=== PATIENT | male | born 1980 | race Caucasian/White ===

== ENCOUNTER 2022-05-06 21:09 | Emergency (ER) | payer OTHER ==
[~2022-05-06] VITALS: Ht 185.4 cm; Wt 172.4 kg
[2022-05-06 21:20] VITALS: BP 112/80
--- NOTE | 2022-05-06 21:23 | NUR ---
TO LOBBY A/W BED AMBULATORY
[2022-05-06 22:28] LABS: BASOPHILS # (AUTO) 0.1 K/uL (0.00-0.22); BASOPHILS % (AUTO) 0.6 % (0.0-2.0); EOSINOPHILS # (AUTO) 0.2 K/uL (0-0.4); EOSINOPHILS % (AUTO) 1.9 % (0.0-4.0); HEMATOCRIT 46.3 % (36-52); HEMOGLOBIN 15.4 g/dL (12.0-18.0); MEAN CORPUSCULAR HEMOGLOBIN 29 pg (27-31); MEAN CORPUSCULAR HGB CONC 33 g/dL (33-37); MEAN CORPUSCULAR VOLUME 87.8 fL (80-94); MONOCYTES # (AUTO) 0.9 K/uL (0.8-1.0); NEUTROPHILS # (AUTO) 8.8 K/uL (1.8-7.7); NEUTROPHILS % (AUTO) 67.5 % (42.2-75.2); PLATELET COUNT (AUTO) 228 K/uL (140-450); RED BLOOD CELL COUNT(AUTO) 5.28 MIL/uL (4.20-6.10); RED CELL DISTRIBUTION WIDTH 14.6 % (11.6-13.7)
[2022-05-06 22:36] LABS: ANION GAP 9.3 (8-16); CARBON DIOXIDE 27.2 mmol/L (21-32); CREATININE 0.8 mg/dL (0.6-1.3); POTASSIUM 3.5 mmol/L (3.5-5.1)
[2022-05-06 22:41] LABS: ALBUMIN 3.4 g/dL (3.4-5.0); TOTAL BILIRUBIN 0.8 mg/dL (0.0-1.0)
--- NOTE | 2022-05-06 23:24 | NUR ---
PT TAKEN TO BED 7
--- NOTE | 2022-05-06 23:35 | NUR ---
PER DR. LONGORIA IF PT UNABLE TO VOID, PLACE ESPINO. PER PT UNABLE TO VOID AT THIS TIME. WILL NOTIFY PRIMARY RN.
--- NOTE | 2022-05-06 23:37 | NUR ---
41 Y/O MALE BIBS FR4OM HOME, C/O ANURIA SINCE YESTERDAY. PT STATES HE IS UNABLE TO URINATE SINCE YESTERDAY. +PRESSURE. NO PAIN, N/V/D. UNLABORED BREATHING, AMBULATORY. HX: KIDNEY STONES NKA
--- NOTE | 2022-05-07 00:22 | NUR ---
ER MD AT BEDSIDE EXAMINING PT
[2022-05-07] MEDS ORDERED: TAMS0.4C96 PO (00:31)
[2022-05-07] MEDS ORDERED: IBUP-2213 PO (00:31)
[2022-05-07 00:35] VITALS: BP 112/80
--- NOTE | 2022-05-07 00:41 | NUR ---
Patient discharged with v/s stable. Written and verbal after care instructions given and explained. Patient alert, oriented and verbalized understanding of instructions. Ambulatory with steady gait. All questions addressed prior to discharge. ID band removed. Patient advised to follow up with PMD. Rx of IBUPROFEN AND FLOMAX given. Patient educated on indication of medication including possible reaction and side effects. Opportunity to ask questions provided and answered. A/OX4, VSS, AMBULATORY, UNLABORED BREATHING, AND CALM DEMEANOR.
== END 2022-05-07 00:41 | disposition home or self-care (01) ==
LOC: MED 21:09
DX: R33.9 Retention of urine, unspecified (principal); R10.9 Unspecified abdominal pain; E11.9 Type 2 diabetes mellitus without complications; F17.200 Nicotine dependence, unspecified, uncomplicated; Z79.4 Long term (current) use of insulin; Z72.89 Other problems related to lifestyle
CPT/HCPCS: 36415; 80053; 81002; 83690; 85025; 99284

== ENCOUNTER 2022-09-08 15:19 | Emergency (ER) | payer OTHER ==
[~2022-09-08] VITALS: Ht 185.4 cm; Wt 148.8 kg
[~2022-09-08 15:19] MED LIST: IBUP-2213 PO; TAMS0.4C96 PO
[2022-09-08 15:47] VITALS: BP 124/69
[2022-09-08] MEDS ORDERED: BACITRACIN OINT 500 UNITS/GM PKT TP ONE (17:20)
[2022-09-08] MEDS ORDERED: BACI1PAC6 TP (17:25)
[2022-09-08] MEDS ORDERED: CEPH250C16 PO (17:26)
--- NOTE | 2022-09-08 18:15 | NUR ---
Pt moved to bed 12.
--- NOTE | 2022-09-08 18:40 | NUR ---
RECEIVED IN [facility] FOR TOE PAIN. DENIES TRAUMA. CSMPT INTACT. AMBULATORY
--- NOTE | 2022-09-08 19:17 | NUR ---
REPORT GIVEN TO NIGHT RN
--- NOTE | 2022-09-08 19:56 | NUR ---
Attempted to give pt discharge instructions, pt not in room, not in lobby. Called 3x, no answer.
== END 2022-09-08 19:56 | disposition home or self-care (01) ==
LOC: MED 15:19
DX: S91.204A Unspecified open wound of right lesser toe(s) with damage to nail, initial encounter (principal); L03.031 Cellulitis of right toe; E11.9 Type 2 diabetes mellitus without complications; Z79.899 Other long term (current) drug therapy; X58.XXXA Exposure to other specified factors, initial encounter; Y93.89 Activity, other specified; Y92.89 Other specified places as the place of occurrence of the external cause; Y99.8 Other external cause status
CPT/HCPCS: 73630; 99283

== ENCOUNTER 2022-11-06 22:34 | Emergency (ER) | payer OTHER ==
[~2022-11-06] VITALS: Ht 185.4 cm; Wt 154.2 kg
[~2022-11-06 22:34] MED LIST changes: +BACI1PAC6 TP; +CEPH250C16 PO
--- NOTE | 2022-11-06 22:34 | NUR ---
PT OFFLOADED TO [facility]
[2022-11-06 22:36] VITALS: BP 154/96
[2022-11-06] MEDS ORDERED: DICYCLOMINE HCL LIQUID 20 MG, ALUMINUM HYD/MAG/SIMETHICONE 30 ML, LIDOCAINE VISCOUS 2% ... PO ONE ×3 (23:35)
[2022-11-06] MEDS ORDERED: ALUMINUM HYD/MAG/SIMETHICONE 30 ML UDC ONE (23:37)
[2022-11-06] MEDS ORDERED: DICYCLOMINE HCL LIQUID 10 MG/5 ML UDC ONE (23:37)
--- NOTE | 2022-11-07 00:18 | NUR ---
PATIENT LEFT WITHOUT BEING SEEN BY DR. FERNANDEZ. NO FURTHER CARE PROVIDED FOR PATIENT.
== END 2022-11-07 00:18 | disposition left against medical advice (07) ==
LOC: MED 22:34
DX: R10.9 Unspecified abdominal pain (principal); Z53.21 Procedure and treatment not carried out due to patient leaving prior to being seen by health care provider